=== PATIENT | female | born 1975 | race Caucasian/White ===

== ENCOUNTER 2020-01-31 11:18 | Outpatient (CLI) | payer OTHER, MEDICAID ==
--- NOTE | 2020-01-31 12:27 | Ultrasound Report ---
PROCEDURE: Pelvic w/Transvaginal INDICATIONS: PAIN IN PELVIC Additional history: History of polyps removed in 2013. TECHNIQUE: Real-time scanning was performed of the pelvic organs, with image documentation. Additional endovagi nal scanning was necessary due to incomplete visualization of the adnexal and endometrial structures by transabdominal scanning. COMPARISON: None. FINDINGS: Transabdominal scanning: Limited scanning through the kidneys shows no hydronephrosis. No pathologi c free abdominal or pelvic fluid. Endovaginal scanning: Uterus: Uterus is retroverted and normal in size at 8.9 x 6 x 5.2 cm. No uterine mass. The endometr ium measures 11 mm in combined thickness. Trilaminar. There is a echogenic focus at the uterine fundu s within the endometrial canal measuring 0.7 x 0.6 x 0.4 cm. There appears to be an adjacent feeding vessel. Trace fluid in the cervix. Small nabothian cysts. Ovaries: Within normal limits. Dominant ovarian follicles. Less than 12 ovarian follicles bilaterall y. Right ovary measures 4.3 x 2.7 x 1.7 cm, volume of 10 cc. Left ovary measures 2 x 1.9 x 1.6 cm, volume of 3 cc. Trace fluid adjacent to the left adnexa. IMPRESSION: 1. Echogenic focus within the endometrium at the fundus measuring 0.7 cm with suspected feeding vesse l. This could represent an endometrial polyp. 2. Endometrial thickness is within normal limits measuring 11 mm. 3. Sonographic appearance of the ovaries is within normal limits. Reviewed by: Ken Perales MD on 01/31/2020 11:26 AM [facility] Approved by: Ken Perales MD on 01/31/2020 11:26 AM [facility] Station ID: [id number]
== END 2020-01-31 11:19 | disposition home or self-care (01) ==
LOC: DI 11:18
PROVIDERS: ATTEND Registered Nurse
DX: R10.2 Pelvic and perineal pain (principal)